=== PATIENT | female | born 1985 | race African-American/Black ===

== ENCOUNTER 2020-11-04 13:46 | Outpatient (CLI) | payer BC | END 2020-11-04 13:47 | disposition home or self-care (01) | LOC: CSHMRI 13:46 | PROVIDERS: ATTEND Physician Assistant | DX: M54.42 Lumbago with sciatica, left side (principal); M54.41 Lumbago with sciatica, right side; R29.898 Other symptoms and signs involving the musculoskeletal system; R20.2 Paresthesia of skin; M47.816 Spondylosis without myelopathy or radiculopathy, lumbar region; N94.89 Other specified conditions associated with female genital organs and menstrual cycle | CPT/HCPCS: 72148 ==

== ENCOUNTER 2020-11-13 16:19 | Outpatient (CLI) | payer BC | END 2020-11-13 16:20 | disposition home or self-care (01) | LOC: CSHULT 16:19 | PROVIDERS: ATTEND Physician Assistant | DX: N83.209 Unspecified ovarian cyst, unspecified side (principal); N83.01 Follicular cyst of right ovary; Z97.5 Presence of (intrauterine) contraceptive device | CPT/HCPCS: 76856 ==